=== PATIENT | female | born 1965 | race African-American/Black ===

== ENCOUNTER 2018-03-30 07:53 | Outpatient (CLI) | payer OTHER | END 2018-03-30 07:54 | disposition home or self-care (01) | LOC: BICMAMMO 07:53 | PROVIDERS: ATTEND Family Medicine | DX: R92.1 Mammographic calcification found on diagnostic imaging of breast (principal); Z80.3 Family history of malignant neoplasm of breast | CPT/HCPCS: 77066; G0279 ==